=== PATIENT | female | born 1930 | race Caucasian/White ===

== ENCOUNTER 2021-06-15 06:22 | Emergency (ER) | payer OTHER, SELFPAY ==
[~2021-06-15] VITALS: Ht 152.4 cm; Wt 45.4 kg
[2021-06-15 06:25] VITALS: BP_SYST 93
[2021-06-15] MEDS ORDERED: CALCIUM GLUCONATE 1 GM/10 ML VIAL ONE (06:37)
[2021-06-15] MEDS ORDERED: EPINEPHrine JECT 0.1 MG/ML SYR ONE (06:38)
[2021-06-15] MEDS ORDERED: CALCIUM CHLORIDE 1 GM/10 ML DISP.SYRIN (14 mEq Ca++/SYR) ONE (06:40)
[2021-06-15] MEDS ORDERED: NOREPINEPHRINE 4 MG/4 ML VIAL IV ONE (06:44)
[2021-06-15] MEDS ORDERED: VANCOMYCIN HCL 1,000 MG in D5W 250 ML IV ONE (06:45)
[2021-06-15] MEDS ORDERED: CALCIUM CHLORIDE 1 GM/10ML VIAL (13.6 mEq Ca++/VIAL) IV ONE (06:45)
[2021-06-15] MEDS ORDERED: PIPERACILLIN/TAZO 3.38 GM in D5W 50 ML IV ONE (06:45)
[2021-06-15] MEDS ORDERED: NOREPINEPHRINE BITARTRATE 4 MG in NS 246 ML IV ONE (06:45)
[2021-06-15] MEDS ORDERED: SODIUM BICARBONATE 8.4% JECT 50 MEQ/50 ML SYRINGE IVP ONE (07:00)
[2021-06-15] MEDS ORDERED: DOPamine PREMIX 250 ML IV ONE (07:00)
[2021-06-15] MEDS ORDERED: ALBUTEROL SULFATE 0.083% 2.5 MG/3 ML VIAL.NEB INH ONE (07:30)
[2021-06-15] MEDS ORDERED: AZITHROMYCIN 500 MG in NS 250 ML IV ONE (08:00)
[2021-06-15] MEDS ORDERED: SODIUM BICARBONATE 8.4% JECT 150 MEQ in D5W 1,000 ML IVP SCH (08:30)
[2021-06-15] MEDS ORDERED: PIPERACILLIN/TAZOBACTAM 3.375 GM/VIAL (ZOSYN) IV ONE (09:11)
[2021-06-15] MEDS ORDERED: AZITHROMYCIN 500 MG/VIAL (ZITHROMAX) IV ONE ×2 (09:11→09:13)
[2021-06-15 09:24] LABS: INR 1.8 (0.8-1.2); PROTHROMBIN TIME 18.4 SECS (9.5-12.5)
[2021-06-15 09:33] LABS: ANION GAP 21 (5-15); CALCIUM 11.7 mg/dL (8.4-11.0); CHLORIDE 94 mmol/L (98-107); CREATININE 2.26 mg/dL (0.55-1.30); GLUCOSE 69 mg/dL (70-99); SODIUM SERUM 133 mmol/L (136-145); UREA NITROGEN, BLOOD 34 mg/dL (8-21)
[2021-06-15 09:44] LABS: POTASSIUM 7.1 mmol/L (3.5-5.1)
[2021-06-15] MEDS ORDERED: DEXTROSE 50% JECT 50 ML DISP.SYRIN IVP ONE (09:45)
[2021-06-15] MEDS ORDERED: SODIUM POLYSTYRENE SULFONATE 15 GM/60 ML UDBTL RC ONE (09:45)
[2021-06-15 09:52] LABS: ALANINE AMINOTRANSFERASE 1376 U/L (12-78); ALBUMIN 3.5 g/dL (3.4-4.8); ASPARTATE AMINOTRANSFERASE 2024 U/L (10-37)
[2021-06-15] MEDS ORDERED: SODIUM BICARBONATE 8.4% VIAL 150 MEQ in D5W 1,000 ML IV ONE (10:00)
[2021-06-15] MEDS ORDERED: VANCOMYCIN HCL 1000 MG/VIAL IV ONE (10:04)
[2021-06-15] MEDS ORDERED: SODIUM BICARBONATE 8.4% VIAL 50 MEQ/50 ML VIAL ONE (10:05)
[2021-06-15 10:13] LABS: BASOPHILS % (AUTO) 0.3 % (0.0-2.0); EOSINOPHILS % (AUTO) 0.1 % (0.0-4.0); LYMPHOCYTES # (AUTO) 0.7 K/uL (1.0-5.5); LYMPHOCYTES % (AUTO) 5.4 % (20.5-51.5); MEAN CORPUSCULAR HEMOGLOBIN 30 pg (27-31); MEAN CORPUSCULAR HGB CONC 31 % (32-36); MEAN CORPUSCULAR VOLUME 95 fL (79.0-98.0); MONOCYTES # (AUTO) 1.2 K/uL (0.0-1.0); MONOCYTES % (AUTO) 9.7 % (1.7-9.3); NEUTROPHILS # (AUTO) 10.8 K/uL (1.8-7.7); NEUTROPHILS % (AUTO) 84.5 % (40.0-70.0); PLATELET COUNT (AUTO) 115 K/uL (130-430); RED BLOOD CELL COUNT(AUTO) 4.23 MIL/uL (4.2-6.2); WHITE BLOOD COUNT (AUTO) 12.8 K/uL (4.8-10.8)
[2021-06-15 10:23] LABS: HEMATOCRIT 40.3 % (36-48); HEMOGLOBIN 12.6 g/dL (12.0-16.0)
[2021-06-15 11:06] VITALS: BP_SYST 66
== END 2021-06-15 12:25 ==
LOC: SED 06:22
DX: A41.9 Sepsis, unspecified organism (principal); R65.21 Severe sepsis with septic shock; I21.4 Non-ST elevation (NSTEMI) myocardial infarction; I11.0 Hypertensive heart disease with heart failure; I50.20 Unspecified systolic (congestive) heart failure; R00.1 Bradycardia, unspecified; J18.9 Pneumonia, unspecified organism; N18.9 Chronic kidney disease, unspecified; E87.5 Hyperkalemia; J44.9 Chronic obstructive pulmonary disease, unspecified; Y95 Nosocomial condition; Z88.8 Allergy status to other drugs, medicaments and biological substances; Z20.822 Contact with and (suspected) exposure to COVID-19
CPT/HCPCS: 36415; 36600; 71045; 80053; 82803; 83605; 83880; 84484; 85025; 85610; 85730; 87040; 87081; 87426; 93005; 94640; 94660; 96365; 96367; 96368; 99291; 99292; J0171; J0456; J0610; J1265; J2543; J3370; J7060; J7613; 99283